=== PATIENT | female | born 1990 | race African-American/Black ===

== ENCOUNTER 2017-09-26 23:55 | Emergency (ER) | payer MEDICAID ==
[~2017-09-26] VITALS: Ht 152.4 cm; Wt 68.0 kg
[2017-09-27] MEDS ORDERED: SODIUM CHLORIDE 0.9% 500 ML IV ONE (00:34)
[2017-09-27 01:14] LABS: BASOPHILS % 0.2 % (0.0-2.0); EOSINOPHILS % 0.2 % (0.0-5.0); HEMATOCRIT. 32.7 % (36.0-48.0); HEMOGLOBIN. 10.6 g/dL (12.0-16.0); MEAN CORPUSCULAR HEMOGLOBIN 24.6 pg (28.0-32.0); MEAN CORPUSCULAR VOLUME 75.8 fL (81.0-99.0); MEAN PLATELET VOLUME 8.7 fl (7.4-10.4); MONOCYTES % 3.7 % (2.0-8.0); NEUTROPHILS % 76.9 % (40.0-76.0); PLATELET 199 x1000/uL (130-400); RED BLOOD CELL COUNT 4.32 mill/uL (4.2-5.4); RED CELL DISTRIBUTION WIDTH 21.2 % (11.6-14.6)
[2017-09-27 01:20] LABS: CHLORIDE 105 mEq/L (98-107)
[2017-09-27 01:42] LABS: B-HCG QUANTITATIVE 11452 mIU/mL (<3)
[2017-09-27 01:48] LABS: CLARITY URINE CLOUDY (CLEAR); COLOR URINE YELLOW (YELLOW); KETONES URINE TRACE (NEGATIVE); LEUKOCYTE ESTERASE URINE 3+ (NEGATIVE); NITRITE URINE NEGATIVE (NEGATIVE); OCCULT BLOOD URINE NEGATIVE (NEGATIVE); PROTEIN URINE NEGATIVE (NEGATIVE); SPECIFIC GRAVITY URINE 1.006 (1.005-1.030)
[2017-09-27 03:19] VITALS: BP 92/49
== END 2017-09-27 03:43 | disposition home or self-care (01) ==
LOC: ER 23:55
DX: O26.892 Other specified pregnancy related conditions, second trimester (principal); R55 Syncope and collapse; O23.42 Unspecified infection of urinary tract in pregnancy, second trimester; N39.0 Urinary tract infection, site not specified; O99.012 Anemia complicating pregnancy, second trimester; D64.9 Anemia, unspecified; O99.322 Drug use complicating pregnancy, second trimester; F12.10 Cannabis abuse, uncomplicated; Z3A.17 17 weeks gestation of pregnancy
CPT/HCPCS: 36415; 76805; 80053; 81001; 84702; 85025; 86850; 86900; 86901; 87086; 93005; 99285; J7030

== ENCOUNTER 2018-02-02 00:30 | Observation (INO) | payer SELFPAY ==
[~2018-02-02] VITALS: Ht 157.5 cm; Wt 83.5 kg
[2018-02-02] MEDS ORDERED: PREN-28 PO (01:17)
== END 2018-02-02 01:35 | disposition home or self-care (01) ==
LOC: L&D 00:30
PROVIDERS: ADMIT Specialist; ATTEND Specialist
DX: O46.93 Antepartum hemorrhage, unspecified, third trimester (principal); Z3A.35 35 weeks gestation of pregnancy
CPT/HCPCS: 99281; G0378

== ENCOUNTER 2018-02-18 04:49 | Inpatient (IN) | payer MEDICAID ==
[~2018-02-18] VITALS: Ht 157.5 cm; Wt 88.9 kg
[~2018-02-18 04:49] MED LIST: PREN-28 PO
[2018-02-18 05:17] LABS: CLARITY URINE CLOUDY (CLEAR); COLOR URINE YELLOW (YELLOW); KETONES URINE 1+ (NEGATIVE); LEUKOCYTE ESTERASE URINE 3+ (NEGATIVE); NITRITE URINE NEGATIVE (NEGATIVE); OCCULT BLOOD URINE TRACE (NEGATIVE); PH URINE 7.5 (4.5-8.0); PROTEIN URINE TRACE (NEGATIVE); SPECIFIC GRAVITY URINE 1.015 (1.005-1.030)
[2018-02-18] MEDS: TERBUTALINE SULFATE 1MG/ML VIAL SUBCUT PRN ×2 (05:49→06:14)
[2018-02-18] MEDS: LACTATED RINGERS 1,000 ML IV SCH ×2 (05:49→06:38)
[2018-02-18] MEDS ORDERED: CEFAZOLIN 2,000 MG in DEXT 5% WATER 100 ML IV SCH (06:00)
[2018-02-18] MEDS ORDERED: FENTANYL CITRATE/PF 50MCG/ML 2ML VIAL ONE ×2 (06:30→09:43)
[2018-02-18] MEDS ORDERED: MORPHINE SULFATE/PF 1MG/ML 10ML AMP ONE (06:30)
[2018-02-18] MEDS ORDERED: OXYTOCIN 10 UNITS/ML 1ML ONE (06:31)
[2018-02-18] MEDS ORDERED: SODIUM CHLORIDE 0.9% 10ML VIAL ONE (06:31)
[2018-02-18] MEDS ORDERED: EPHEDRINE SULFATE 50MG/ML VIAL ONE (06:31)
[2018-02-18] MEDS ORDERED: ONDANSETRON HCL 4MG/2ML VIAL ONE ×2 (06:31→09:54)
[2018-02-18] MEDS ORDERED: GLYCOPYRROLATE 0.2 MG/ML 2ML VIAL ONE ×2 (06:31→10:04)
[2018-02-18] MEDS ORDERED: PHENYLEPHRINE HCL 10 MG/ML 1ML (IV VIAL) IV ONE (06:31)
[2018-02-18] MEDS ORDERED: CITRIC ACID/SODIUM CITRATE SOLN 30ML UDC PO NR (06:42)
[2018-02-18 06:50] LABS: BASOPHILS % 0.6 % (0.0-2.0); EOSINOPHILS % 0.2 % (0.0-5.0); HEMATOCRIT. 31.2 % (36.0-48.0); HEMOGLOBIN. 10.1 g/dL (12.0-16.0); LYMPHOCYTES % 26.9 % (20.0-50.0); MEAN CORPUSCULAR VOLUME 71.4 fL (81.0-99.0); MONOCYTES % 5.2 % (2.0-8.0); NEUTROPHILS % 67.1 % (40.0-76.0); RED BLOOD CELL COUNT 4.38 mill/uL (4.2-5.4); RED CELL DISTRIBUTION WIDTH 16.2 % (11.6-14.6)
[2018-02-18 07:20] LABS: MEAN PLATELET VOLUME 10.8 fl (7.4-10.4); PLATELET 155 x1000/uL (130-400)
[2018-02-18] MEDS ORDERED: PROPOFOL 200MG/20ML VIAL IV ONE (09:27)
[2018-02-18] MEDS ORDERED: LIDOCAINE HCL/PF 1% 10 MG/ML 5ML VIAL ONE (09:27)
[2018-02-18] MEDS ORDERED: SUCCINYLCHOLINE CHLORIDE 200MG/10ML VIAL IV ONE (09:28)
[2018-02-18] MEDS ORDERED: ROCURONIUM BROMIDE 10MG/ML VIAL 5ML IV ONE (09:28)
[2018-02-18] MEDS ORDERED: METOCLOPRAMIDE HCL 10MG/2ML VIAL ONE (09:54)
[2018-02-18] MEDS ORDERED: NEOSTIGMINE METHYLSULFATE 1MG/ML 10 ML VIAL ONE (10:04)
[2018-02-18 10:11] LABS: HEPATITIS B SURFACE ANTIGEN NEGATIVE; RUBELLA IGG 77.7 IU/mL (4.99-10)
[2018-02-18] MEDS ORDERED: SODIUM CHLORIDE 0.9% 1,000 ML IV ONE (10:43)
[2018-02-18] MEDS ORDERED: LANOLIN OINT 0.25 GM TUBE TOP PRN (10:45)
[2018-02-18] MEDS ORDERED: RHO(D) IMMUNE GLOBULIN 300 MCG/SYR IM PRN (10:45)
[2018-02-18] MEDS ORDERED: ONDANSETRON HCL 4MG/2ML VIAL IV PRN ×2 (10:45)
[2018-02-18] MEDS ORDERED: HYDROMORPHONE HCL/PF 2MG/ML CPJ IV PRN (10:45)
[2018-02-18] MEDS ORDERED: MEPERIDINE HCL/PF 25MG/ML CPJ IV PRN ×2 (10:45)
[2018-02-18] MEDS ORDERED: HYDROCODONE/ACETAMINOPHEN 5/325MG TABLET PO PRN ×2 (10:45)
[2018-02-18] MEDS ORDERED: MORPHINE SULFATE 2 MG/ML CPJ (NOT FOR IM USE) IV PRN (11:15)
[2018-02-18] MEDS ORDERED: KETOROLAC 30MG/ML VIAL IV ONE (11:15)
[2018-02-18] MEDS ORDERED: KETOROLAC 30MG/ML VIAL IM ONE (11:15)
[2018-02-18] MEDS: MORPHINE SULFATE 4 MG/ML CPJ (NOT FOR IM USE) IV PRN ×3 (11:38→12:19)
[2018-02-18] MEDS: DEXT 5%/LR + PITOCIN 20UNITS/L 1,000 ML IV SCH (11:44)
[2018-02-18 13:30] VITALS: BP 115/68
[2018-02-18 14:00] VITALS: BP 108/68
[2018-02-18 15:00] VITALS: BP 98/54
[2018-02-18 16:58] VITALS: BP 114/69
[2018-02-18 22:00] VITALS: BP 104/67
[2018-02-19] VITALS: BP 105/77
[2018-02-19] MEDS: DEXT 5%/LR + PITOCIN 20UNITS/L 1,000 ML IV SCH (00:07)
[2018-02-19 04:31] LABS: *AMPHETAMINES SCREEN URINE NEGATIVE (NEGATIVE); *BARBITURATES SCREEN URINE NEGATIVE (NEGATIVE); *COCAINE SCREEN URINE NEGATIVE (NEGATIVE); METHADONE URINE SCREEN NEGATIVE (NEGATIVE); PHENCYCLIDINE URINE SCREEN NEGATIVE (NEGATIVE)
[2018-02-19 04:32] LABS: *BENZODIAZEPINES SCREEN URINE NEGATIVE (NEGATIVE)
[2018-02-19 04:38] LABS: CANNABINOID URINE SCREEN PRESUMTIVE POSITIVE (NEGATIVE); OPIATES URINE SCREEN PRESUMTIVE POSITIVE (NEGATIVE)
[2018-02-19 06:55] LABS: BASOPHILS % 0.2 % (0.0-2.0); HEMOGLOBIN. 7.1 g/dL (12.0-16.0); LYMPHOCYTES % 14.8 % (20.0-50.0); MEAN CORPUSCULAR HEMOGLOBIN 23.1 pg (28.0-32.0); MEAN CORPUSCULAR VOLUME 71.8 fL (81.0-99.0); MEAN PLATELET VOLUME 9.3 fl (7.4-10.4); MONOCYTES % 7.2 % (2.0-8.0); NEUTROPHILS % 77.8 % (40.0-76.0); PLATELET 128 x1000/uL (130-400); RED BLOOD CELL COUNT 3.06 mill/uL (4.2-5.4); RED CELL DISTRIBUTION WIDTH 16.1 % (11.6-14.6)
[2018-02-19 07:32] VITALS: BP 99/55
[2018-02-19] MEDS: PRENATAL VIT/FE FUMARATE/FA TABLET PO SCH (08:22)
[2018-02-19] MEDS: IBUPROFEN 400MG TABLET PO PRN ×2 (08:22→17:29)
[2018-02-19 15:29] VITALS: BP 93/50
[2018-02-19 20:00] VITALS: BP 111/79
[2018-02-19] MEDS ORDERED: METRONIDAZOLE 500MG TABLET PO NR (20:30)
[2018-02-20] VITALS: BP 115/75
[2018-02-20 06:00] VITALS: BP 117/70
[2018-02-20 08:00] VITALS: BP 97/54
[2018-02-20] MEDS: IBUPROFEN 400MG TABLET PO PRN (09:10)
[2018-02-20] MEDS: PRENATAL VIT/FE FUMARATE/FA TABLET PO SCH (09:10)
[2018-02-20] MEDS ORDERED: METRONIDAZOLE 500MG TABLET PO SCH (09:13)
[2018-02-20 12:00] VITALS: BP 106/59
[2018-02-20 16:00] VITALS: BP 104/57
[2018-02-20 20:09] VITALS: BP 114/66
[2018-02-21] VITALS: BP 112/65
[2018-02-21 04:00] VITALS: BP 99/61
[2018-02-21 08:00] VITALS: BP 109/66
[2018-02-21] MEDS: PRENATAL VIT/FE FUMARATE/FA TABLET PO SCH (09:00)
[2018-02-21] MEDS ORDERED: BACITRACIN ZINC 15GM TUBE TOP SCH (12:00)
== END 2018-02-21 12:00 | disposition home or self-care (01) | DRG 540 ==
LOC: L&D 04:49 → OBSVTOIN 04:49 → 7EST PP/OB 12:28
PROVIDERS: ADMIT Specialist; ATTEND Specialist
PROC: 10D00Z1 Extraction of Products of Conception, Low, Open Approach (ICD-10-PCS; principal; 2018-02-18 08:43)
DX: O34.211 Maternal care for low transverse scar from previous cesarean delivery (principal); D62 Acute posthemorrhagic anemia; O98.33 Other infections with a predominantly sexual mode of transmission complicating the puerperium; A59.9 Trichomoniasis, unspecified; Z37.0 Single live birth; O90.81 Anemia of the puerperium; Z3A.37 37 weeks gestation of pregnancy; Z79.899 Other long term (current) drug therapy
CPT/HCPCS: 36415; 80305; 80349; 80361; 81003; 85025; 86592; 86703; 86762; 86850; 86900; 86920; 87086; 87340; 88307; A4216; J0330; J0690; J1885; J2270; J2274; J2370; J2405; J2590; J2704; J2710; J2765; J3010; J3105; J3490; J7060; J7120

== ENCOUNTER 2020-07-24 16:10 | Emergency (ER) | payer MEDICAID ==
[~2020-07-24] VITALS: Ht 157.5 cm; Wt 80.0 kg
[2020-07-24 16:31] VITALS: BP 122/57
[2020-07-24 18:18] LABS: BASOPHILS % 0.6 % (0.0-2.0); EOSINOPHILS % 0.1 % (0.0-5.0); HEMATOCRIT. 34.8 % (36.0-48.0); LYMPHOCYTES % 16.6 % (20.0-50.0); MEAN CORPUSCULAR HEMOGLOBIN 23.5 pg (28.0-32.0); MEAN CORPUSCULAR VOLUME 74.2 fL (81.0-99.0); MEAN PLATELET VOLUME 9.2 fl (7.4-10.4); MONOCYTES % 6.3 % (2.0-8.0); NEUTROPHILS % 76.4 % (40.0-76.0); PLATELET 235 x1000/uL (130-400); RED BLOOD CELL COUNT 4.68 mill/uL (4.2-5.4); RED CELL DISTRIBUTION WIDTH 16.7 % (11.6-14.6)
[2020-07-24 18:24] LABS: CHLORIDE 106 mEq/L (98-107)
[2020-07-24] MEDS ORDERED: KETOROLAC 60MG/2ML VIAL IM ONE (20:15)
== END 2020-07-24 21:32 | disposition home or self-care (01) ==
LOC: ER 16:10
DX: K04.7 Periapical abscess without sinus (principal); M26.53 Deviation in opening and closing of the mandible
CPT/HCPCS: 36415; 70487; 80048; 81025; 85025; 96372; 99285; J1885

== ENCOUNTER 2020-08-03 09:06 | Emergency (ER) | payer MEDICAID ==
[~2020-08-03] VITALS: Ht 170.2 cm; Wt 77.0 kg
[2020-08-03 10:10] LABS: HEMATOCRIT. 31.5 % (36.0-48.0); HEMOGLOBIN. 10.2 g/dL (12.0-16.0); MEAN CORPUSCULAR HEMOGLOBIN 23.4 pg (28.0-32.0); MEAN CORPUSCULAR VOLUME 72.3 fL (81.0-99.0); MEAN PLATELET VOLUME 8.1 fl (7.4-10.4); PLATELET 301 x1000/uL (130-400); RED BLOOD CELL COUNT 4.36 mill/uL (4.2-5.4)
[2020-08-03] MEDS ORDERED: IBUPROFEN 600MG TABLET PO ONE (10:30)
[2020-08-03 10:46] LABS: CHLORIDE 105 mEq/L (98-107)
[2020-08-03] MEDS ORDERED: CLINDAMYCIN 600 MG in DEXTROSE 5% WATER 50 ML IV ONE (13:15)
[2020-08-03] MEDS ORDERED: IOHEXOL-300 50 ML BOTTLE IV ONE (13:17)
[2020-08-03] MEDS ORDERED: SODIUM CHLORIDE 0.9% 1,000 ML IV ONE (14:00)
[2020-08-03] MEDS ORDERED: KETOROLAC 15MG/ML VIAL IV NR (14:00)
[2020-08-03] MEDS ORDERED: CLINDAMYCIN 600MG PREMIX 50 ML IV SCH (14:30)
[2020-08-03 14:59] LABS: PLATELET ESTIMATE NORMAL
[2020-08-03] MEDS ORDERED: DEXAMETHASONE 10 MG/ML VIAL IV ONE (15:30)
[2020-08-03] MEDS ORDERED: ONDANSETRON HCL 4MG/2ML INJ IV PRN (16:30)
[2020-08-03] MEDS ORDERED: KETOROLAC 30MG/ML VIAL IV PRN (16:30)
[2020-08-03] MEDS ORDERED: PIPERACILLIN/TAZOBACTAM 3.375 G in DEXT 5% WATER 100 ML IV SCH (17:00)
[2020-08-03 17:54] VITALS: BP 129/72
[2020-08-03] MEDS ORDERED: POTASSIUM CHLORIDE INJ 40 MEQ in DEXT 5% WATER 250 ML IV SCH (18:00)
[2020-08-03] MEDS ORDERED: VANCOMYCIN 1 G PREMIX 200 ML IV SCH (18:00)
[2020-08-03] MEDS ORDERED: METHYLPREDNISOLONE SOD SUCC 40 MG/ML VIAL IV SCH (22:00)
== END 2020-08-03 17:55 | disposition left against medical advice (07) ==
LOC: ER 09:06 → CANBEDREQ 20:40
DX: K12.2 Cellulitis and abscess of mouth (principal); F12.10 Cannabis abuse, uncomplicated; I49.9 Cardiac arrhythmia, unspecified
CPT/HCPCS: 36415; 70487; 80048; 81025; 85025; 93005; 96365; 96375; 99285; J1885; J2543; J3490; J7060; Q9967; J3480

== ENCOUNTER 2021-04-23 00:27 | Emergency (ER) | payer MEDICAID ==
[~2021-04-23] VITALS: Ht 157.5 cm; Wt 80.0 kg
[2021-04-23] MEDS ORDERED: SULFAMETHOXAZOLE/TRIMETHOPRIM 800/160MG TABLET PO ONE (01:15)
[2021-04-23] MEDS ORDERED: CEPHALEXIN 250MG CAPSULE PO ONE (01:15)
[2021-04-23] MEDS ORDERED: SULF1TAB48 MT (01:16)
[2021-04-23] MEDS ORDERED: CEPH500T MT (01:16)
[2021-04-23 01:25] VITALS: BP 125/70
== END 2021-04-23 01:37 | disposition home or self-care (01) ==
LOC: ER 00:27
DX: N61.0 Mastitis without abscess (principal)
CPT/HCPCS: 99283